=== PATIENT | male | born 1960 | race Caucasian/White ===

== ENCOUNTER 2019-05-16 10:57 | Emergency (ER) | payer BC ==
[2019-05-16] MEDS ORDERED: HYDROmorphone 1 MG/ML Syringe IVPUSH ONE (11:24)
[2019-05-16] MEDS ORDERED: methylPREDNISolone Sodium Succinate 125 MG/2 ML SDV IVPUSH ONE (11:24)
--- NOTE | 2019-05-16 11:31 | EDM.PDOC ---
ED HPI GENERAL MEDICAL PROBLEM - General Chief Complaint: Back Pain or Injury Stated Complaint: HIP PAIN Time Seen by Provider: 05/16/19 11:10 Source of Information: Reports: Patient History Limitations: Reports: No Limitations - History of Present Illness INITIAL COMMENTS - FREE TEXT/NARRATIVE: This 59 yo male patient reports to the ED with back pain radiating to the left hip and thigh. The patient reports he started to have increased back pain about 2 weeks ago, was treated in the ED in [place] and has been doing well since that time up to 3 days ago. The patient reports he took a pain pill this morning and went to the chiropractor. After being at the chiropractor, the patient reports he has been in too much pain to go back home. The patient reports he did have x- rays in [place]. The patient reports he has not lost control of his bowels or bladder. Duration: Day(s):, Constant, Getting Worse Location: Reports: Back (low back to left hip and thigh) Quality: Reports: Ache, Sharp, Stabbing Severity: Severe Improves with: Reports: None Worsens with: Reports: None Context: Reports: Other Associated Symptoms: Reports: No Other Symptoms Treatments INFORMATION RESOURCES DIRECTOR: Reports: Other Medication(s) Left Back Pain Score (Numeric/FACES): 6 - Related Data Allergies Allergy/AdvReac Type Severity Reaction Status Date / Time No Known Allergies Allergy Verified 05/16/19 11:10 Home Meds: Home Meds Hydrocodone/Acetaminophen [Hydrocodon-Acetaminophen 5-325] 1 each PO DAILY 05/16 [History] Lidocaine 5% 1 applic TOP DAILY 05/16/19 [History] Losartan/Hydrochlorothiazide [Losartan-HCTZ 50-12.5 MG] 1 tab PO DAILY 05/16/19 [History] Simvastatin 20 mg PO DAILY 05/16/19 [History] metFORMIN [Glucophage XR] 500 gm PO DAILY 05/16/19 [History] Past Medical History HEENT History: Reports: None Cardiovascular History: Reports: Hypertension Respiratory History: Reports: None Gastrointestinal History: Reports: None Genitourinary History: Reports: None Musculoskeletal History: Reports: Back Pain, Chronic Neurological History: Reports: None Psychiatric History: Reports: None Endocrine/Metabolic History: Reports: None Hematologic History: Reports: None Oncologic (Cancer) History: Reports: None Dermatologic History: Reports: None - Infectious Disease History Infectious Disease History: Reports: None - Past Surgical History Head Surgeries/Procedures: Reports: None Social & Family History - Family History Family Medical History: Noncontributory - Tobacco Use Smoking Status *Q: Never Smoker - Caffeine Use Caffeine Use: Reports: Coffee, Soda - Recreational Drug Use Recreational Drug Use: No ED ROS GENERAL - Review of Systems Review Of Systems: ROS reveals no pertinent complaints other than HPI. ED EXAM,LOWER BACK PAIN/INJURY - Physical Exam Exam: See Below General Appearance: Alert, WD/WN, Severe Distress Eye Exam: Bilateral Eye: EOMI, Normal Inspection, PERRL Ears: Normal External Exam, Normal Canal, Hearing Grossly Normal, Normal TMs Nose: Normal Inspection, Normal Mucosa, No Blood Throat/Mouth: Normal Inspection, Normal Lips, Normal Teeth, Normal Gums, Normal Oropharynx, Normal Voice, No Airway Compromise Head: Atraumatic, Normocephalic Neck: Normal Inspection, Supple, Non-Tender, Full Range of Motion Respiratory/Chest: No Respiratory Distress, Lungs Clear, Normal Breath Sounds, No Accessory Muscle Use, Chest Non-Tender Cardiovascular: Normal Peripheral Pulses, Regular Rate, Rhythm, No Edema, No Gallop, No JVD, No Murmur, No Rub GI/Abdominal: Normal Bowel Sounds, Soft, Non-Tender, No Organomegaly, No Distention, No Abnormal Bruit, No Mass (Male) Exam: Deferred Rectal (Males) Exam: Deferred Back Exam: Decreased Range of Motion (due to left lower back pain with sciatica to the left hip and thigh), Muscle Spasm (left lower back), Paraspinal Tenderness, Vertebral Tenderness Extremities: Limited Range of Motion (due to lower back pain and muscle spasms) Neurological: Alert, Normal Mood/Affect, Straight Leg Raise (L), Difficulty Walking (due to low back pain). No: Saddle Anesthesia Psychiatric: Normal Affect, Normal Mood Skin Exam: Warm, Dry, Intact, Normal Color, No Rash Lymphatic: No Adenopathy Course - Vital Signs Last Recorded V/S: Last Vital Signs Temp 36.7 C 05/16/19 10:58 Pulse 68 05/16/19 10:58 Resp 20 05/16/19 10:58 BP 140/74 05/16/19 12:15 Pulse Ox 100 05/16/19 10:58 - Orders/Labs/Meds Orders: Active Orders 24 hr Category Date Time Status Orphenadrine [Norflex] Med 05/16/19 11:30 Ordered 60 mg IM Q12H Medication Orders Orphenadrine Citrate (Norflex) 60 mg IM Q12H DOROTA Last Admin: 05/16/19 11:46 Dose: 60 mg Meds: Medications Generic Name Dose Route Start Last Admin Trade Name Ino PRN Reason Stop Dose Admin Orphenadrine Citrate 60 mg 05/16/19 11:30 05/16/19 11:46 Norflex IM 60 mg Q12H DOROTA Administration Discontinued Medications Generic Name Dose Route Start Last Admin Trade Name Freq PRN Reason Stop Dose Admin Hydromorphone HCl 1 mg 05/16/19 11:24 05/16/19 11:35 Dilaudid IVPUSH 05/16/19 11:25 1 mg ONETIME ONE Administration Methylprednisolone Sodium Succinate 125 mg 05/16/19 11:24 05/16/19 11:41 Solu-Medrol IVPUSH 05/16/19 11:25 125 mg ONETIME ONE Administration - Re-Assessments/Exams Free Text/Narrative Re-Assessment/Exam: 05/16/19 11:41 A call was placed to [facility] in [place]. 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 Departure - Departure Time of Disposition: 13:00 Disposition: Home, Self-Care 01 Condition: Fair Clinical Impression: Low back pain with sciatica Qualifiers: Chronicity: acute Back pain laterality: left Sciatica laterality: sciatica of left side Qualified Code(s): M54.42 - Lumbago with sciatica, left side - Discharge Information *PRESCRIPTION DRUG MONITORING PROGRAM REVIEWED*: Not Applicable *COPY OF PRESCRIPTION DRUG MONITORING REPORT IN PATIENT MELINDA: Not Applicable Instructions: Chronic Back Pain, [id number], Muscle Strain, [id number] Forms: ED Department Discharge Care Plan Goals: The patient was advised of the examination results during the visit. The patient was given IV Dilaudid, IV SoluMedrol and IM Norflex while in the ED. The patient was encouraged to follow-up with his primary care facility for continued evaluation and further management. If the patient has any additional symptoms or concerns, the patient should either return to the emergency department or visit his primary care facility. - My Orders Last 24 Hours: My Active Orders 05/16/19 11:30 Orphenadrine [Norflex] 60 mg IM Q12H - Assessment/Plan Last 24 Hours: My Active Orders 05/16/19 11:30 Orphenadrine [Norflex] 60 mg IM Q12H
== END 2019-05-16 13:07 | disposition home or self-care (01) ==
LOC: DL.ED 10:57
DX: M54.42 Lumbago with sciatica, left side (principal); I10 Essential (primary) hypertension; Z79.899 Other long term (current) drug therapy
CPT/HCPCS: 96372; 96374; 96375; 99283; J1170; J2360; J2930; 72148